=== PATIENT | male | born 1980 | race Caucasian/White ===

== ENCOUNTER 2018-01-30 16:39 | Inpatient (IN) | payer MEDICAID, OTHER, SELFPAY ==
[~2018-01-30] VITALS: Ht 182.9 cm; Wt 74.8 kg
[2018-01-30] MEDS ORDERED: SODIUM CHLORIDE 0.9% 1,000 ML IV ONE ×2 (16:55→18:17)
[2018-01-30] MEDS ORDERED: SODIUM CHLORIDE FLUSH 10ML SYR IVF ONE (17:00)
[2018-01-30 17:21] LABS: MEAN CORPUSCULAR HEMOGLOBIN 30.1 pg (27.5-34.5); MEAN CORPUSCULAR HGB CONC 32.6 g/dL (33.2-36.2); MEAN CORPUSCULAR VOLUME 92.3 fL (81-97); PLATELET COUNT 449 x10^3/uL (130-400); RED BLOOD COUNT 5.19 x10^6/uL (4.38-5.82); RED CELL DISTRIBUTION WIDTH 13.7 % (9.4-14.8)
[2018-01-30 17:22] LABS: PH, VENOUS 6.907 pH (7.320-7.420)
[2018-01-30 17:27] LABS: ALANINE AMINOTRANSFERASE 38 U/L (12-78); ALBUMIN 4.5 g/dL (3.4-5.0); ANION GAP 30 mmol/L (5-15); CALCIUM 9.4 mg/dL (8.5-10.1); CHLORIDE 85 mmol/L (98-107); CREATININE 1.99 mg/dL (0.7-1.3)
[2018-01-30] MEDS ORDERED: SODIUM CHLORIDE 0.9% 1,000ML IVBOLUS ONE ×2 (17:30→18:00)
[2018-01-30 17:40] LABS: ALKALINE PHOSPHATASE 174 U/L (45-117); BILIRUBIN,TOTAL 0.6 mg/dL (0.2-1.0); MD YES; TOTAL PROTEIN 8.5 g/dL (6.4-8.2)
[2018-01-30] MEDS ORDERED: ONDANSETRON ODT 4 MG ONE (17:40)
[2018-01-30 17:42] LABS: BAND#(MANUAL) 1.38 x10^3/uL; BANDS%(MANUAL) 4 % (0-7); EOS#(MANUAL) 0.35 x10^3/uL (0.0-0.4); EOS% (MANUAL) 1 % (1-7); LYMPH#(MANUAL) 2.07 x10^3/uL (1-3.4); LYMPHS% (MANUAL) 6 % (22-44); MONOS#(MANUAL) 2.07 x10^3/uL (0.3-2.7); MONOS% (MANUAL) 6 % (2-9); SEG#(MANUAL) 28.64 x10^3/uL (1.8-6.8); SEGS% (MANUAL) 83 % (42-75)
[2018-01-30 17:43] LABS: <PLATELET ESTIMATE> INCREASED; <PLT MORPHOLOGY> NORMAL PLT MORPH; <RBC MORPHOLOGY> NORMAL
[2018-01-30] MEDS ORDERED: MORPHINE SULFATE 4 MG/ML, 1ML ONE ×2 (17:54→19:00)
[2018-01-30] MEDS ORDERED: CALCIUM CHLORIDE 10%, 10ML SYR ONE (17:59)
[2018-01-30] MEDS ORDERED: ONDANSETRON ODT 4 MG PO ONE (18:00)
[2018-01-30] MEDS ORDERED: MORPHINE SULFATE 4 MG/ML, 1ML IVPush ONE ×2 (18:00→19:30)
[2018-01-30] MEDS ORDERED: REGULAR INSULIN 62.5 UNITS in SODIUM CHLORIDE 0.9% 249.375 ML IV PRN ×2 (18:00→20:29)
[2018-01-30] MEDS ORDERED: CALCIUM CHLORIDE 10%, 10ML SYR IVPush ONE (18:00)
[2018-01-30 18:22] LABS: ACETONE, SERUM Large (80mg/dL) mg/dL (Negative)
[2018-01-30] MEDS ORDERED: SODIUM BICARBONATE 1 MEQ/ML, 50ML VIAL IVPush STA (18:25)
[2018-01-30] MEDS ORDERED: SODIUM BICARB 8.4%, 50ML SYRINGE ONE (18:29)
[2018-01-30] MEDS ORDERED: CALCIUM CHLORIDE 6.8 MEQ in SODIUM CHLORIDE 0.9% 100 ML IV ONE (18:30)
[2018-01-30 18:41] LABS: MICROSCOPIC AUTO
[2018-01-30 18:42] LABS: CULTURE INDICATED? NO
[2018-01-30] MEDS ORDERED: INSU100V8 SQ (19:23)
[2018-01-30 19:38] LABS: ALBUMIN 3.7 g/dL (3.4-5.0); ANION GAP 26 mmol/L (5-15); CHLORIDE 97 mmol/L (98-107)
[2018-01-30 19:42] LABS: CREATININE 1.59 mg/dL (0.7-1.3)
[2018-01-30] MEDS ORDERED: CEFTRIAXONE 1,000 MG in SODIUM CHLORIDE 0.9% 50 ML IVPB ONE (20:00)
[2018-01-30] MEDS ORDERED: CEFTRIAXONE PMX 1GM/50ML 50 ML ONE (20:04)
[2018-01-30] MEDS: SODIUM CHLORIDE 0.9% 1,000 ML IV SCH ×2 (20:29→22:19)
[2018-01-30] MEDS ORDERED: DEXTROSE 4 GM TAB.CHEW PO PRN (20:30)
[2018-01-30] MEDS ORDERED: ONDANSETRON 2MG/ML, 2ML IVPush PRN (20:30)
[2018-01-30] MEDS: HEPARIN 5,000 UNITS/ML, 1ML SQ SCH (20:30)
[2018-01-30] MEDS ORDERED: DEXTROSE 50%, 50ML SYRINGE IVPush PRN (20:30)
[2018-01-30] MEDS: D5%-0.45% NACL 1,000 ML IV SCH (20:30)
[2018-01-30] MEDS ORDERED: GLUCAGON 1 MG IM PRN (20:30)
[2018-01-30] MEDS: SODIUM CHLORIDE FLUSH 10ML SYR IVF SCH (21:00)
[2018-01-30 21:04] LABS: ANION GAP 25 mmol/L (5-15); CALCIUM 8.5 mg/dL (8.5-10.1); CHLORIDE 102 mmol/L (98-107); CREATININE 1.52 mg/dL (0.7-1.3)
[2018-01-30 21:19] VITALS: BP 109/70
[2018-01-30 21:46] VITALS: BP 110/53
[2018-01-30] MEDS ORDERED: HEPARIN 5,000 UNITS/ML, 1ML ONE (21:58)
[2018-01-31] MEDS: D5%-0.45% NACL 1,000 ML IV SCH ×2 (00:31→07:19)
[2018-01-31 01:06] LABS: ANION GAP 14 mmol/L (5-15); CALCIUM 8.4 mg/dL (8.5-10.1); CHLORIDE 110 mmol/L (98-107); CREATININE 1.41 mg/dL (0.7-1.3)
[2018-01-31] MEDS: HEPARIN 5,000 UNITS/ML, 1ML SQ SCH ×3 (04:38→21:28)
[2018-01-31 04:39] VITALS: BP 98/57
[2018-01-31 05:07] LABS: CHLORIDE 112 mmol/L (98-107)
[2018-01-31 05:22] LABS: ANION GAP 12 mmol/L (5-15); CALCIUM 8.1 mg/dL (8.5-10.1); CREATININE 1.26 mg/dL (0.7-1.3)
[2018-01-31 05:27] LABS: ACETONE, SERUM Moderate(40mg/dL) mg/dL (Negative)
[2018-01-31] MEDS: SODIUM CHLORIDE 0.9% 1,000 ML IV SCH ×2 (05:39→11:29)
[2018-01-31 05:56] LABS: MEAN CORPUSCULAR HEMOGLOBIN 30.4 pg (27.5-34.5); MEAN CORPUSCULAR HGB CONC 34.8 g/dL (33.2-36.2); MEAN CORPUSCULAR VOLUME 87.3 fL (81-97); MEAN PLATELET VOLUME 8.8 fL (7.4-10.4); PLATELET COUNT 322 x10^3/uL (130-400); RED BLOOD COUNT 4.42 x10^6/uL (4.38-5.82); RED CELL DISTRIBUTION WIDTH 13.2 % (9.4-14.8)
[2018-01-31 06:25] LABS: BASOPHILS # (AUTO) 0.02 x10^3/uL (0-0.1); BASOPHILS % (AUTO) 0 % (0-1); EOSINOPHILS % (AUTO) 0 % (1-7); LYMPHOCYTES # (AUTO) 2.06 x10^3/uL (1-3.4); LYMPHOCYTES % (AUTO) 11 % (22-44); MD SCAN; MONOCYTES # (AUTO) 1.29 x10^3/uL (0.2-0.8); MONOCYTES % (AUTO) 7 % (2-9); NEUTROPHILS # (AUTO) 16.33 x10^3/uL (1.8-6.8); NEUTROPHILS % (AUTO) 83 % (42-75)
[2018-01-31] MEDS ORDERED: SODIUM PHOSPHATE 20 MMOL in SODIUM CHLORIDE 0.9% 500 ML IV ONE (08:00)
[2018-01-31 08:57] LABS: ANION GAP 10 mmol/L (5-15); CALCIUM 8.1 mg/dL (8.5-10.1); CHLORIDE 112 mmol/L (98-107); CREATININE 1.05 mg/dL (0.7-1.3)
[2018-01-31] MEDS: SODIUM CHLORIDE FLUSH 10ML SYR IVF SCH ×2 (09:00→21:28)
[2018-01-31 13:30] LABS: ANION GAP 11 mmol/L (5-15); CALCIUM 7.7 mg/dL (8.5-10.1); CHLORIDE 111 mmol/L (98-107); CREATININE 0.94 mg/dL (0.7-1.3)
[2018-01-31] MEDS: INSULIN LISPRO 100 UNITS/ML, PEN SQ-INSULIN SCH ×2 (16:00→20:55)
[2018-01-31 19:57] LABS: HEMOGLOBIN A1C 13.7 % (4.2-6.3)
[2018-01-31] MEDS ORDERED: SODIUM CHLORIDE 0.9% 1,000 ML IV SCH (20:29)
[2018-01-31 20:53] VITALS: BP 117/66
[2018-01-31] MEDS: INSULIN GLARGINE 100 UNITS/ML, PEN SQ-INSULIN SCH ×2 (21:00→23:25)
[2018-01-31] MEDS ORDERED: D5%-0.9% NACL+KCL 20MEQ 1,000 ML IV SCH (21:30)
[2018-01-31 21:44] LABS: ANION GAP 13 mmol/L (5-15); CALCIUM 7.5 mg/dL (8.5-10.1); CHLORIDE 111 mmol/L (98-107)
[2018-01-31 21:45] LABS: CREATININE 0.83 mg/dL (0.7-1.3)
[2018-01-31] MEDS ORDERED: POTASSIUM PHOSPHATE 44 MEQ in SODIUM CHLORIDE 0.9% 500 ML IV ONE (22:00)
[2018-02-01 03:30] VITALS: BP 104/67
[2018-02-01 05:18] LABS: BASOPHILS # (AUTO) 0.11 x10^3/uL (0-0.1); BASOPHILS % (AUTO) 1 % (0-1); EOSINOPHILS # (AUTO) 0.01 x10^3/uL (0-0.4); EOSINOPHILS % (AUTO) 0 % (1-7); LYMPHOCYTES # (AUTO) 1.24 x10^3/uL (1-3.4); LYMPHOCYTES % (AUTO) 14 % (22-44); MD NO; MEAN CORPUSCULAR HEMOGLOBIN 30.3 pg (27.5-34.5); MEAN CORPUSCULAR HGB CONC 34.9 g/dL (33.2-36.2); MEAN CORPUSCULAR VOLUME 86.8 fL (81-97); MEAN PLATELET VOLUME 8.5 fL (7.4-10.4); MONOCYTES # (AUTO) 0.74 x10^3/uL (0.2-0.8); MONOCYTES % (AUTO) 8 % (2-9); NEUTROPHILS # (AUTO) 6.91 x10^3/uL (1.8-6.8); NEUTROPHILS % (AUTO) 77 % (42-75); PLATELET COUNT 221 x10^3/uL (130-400); RED BLOOD COUNT 3.72 x10^6/uL (4.38-5.82); RED CELL DISTRIBUTION WIDTH 13.6 % (9.4-14.8)
[2018-02-01 05:29] LABS: ANION GAP 9 mmol/L (5-15); CALCIUM 7.6 mg/dL (8.5-10.1); CHLORIDE 114 mmol/L (98-107)
[2018-02-01 05:31] LABS: CREATININE 0.73 mg/dL (0.7-1.3)
[2018-02-01] MEDS: HEPARIN 5,000 UNITS/ML, 1ML SQ SCH ×3 (06:11→20:26)
[2018-02-01 06:52] VITALS: BP 117/73
[2018-02-01] MEDS: INSULIN LISPRO 100 UNITS/ML, PEN SQ-INSULIN SCH ×4 (07:00→20:31)
[2018-02-01] MEDS ORDERED: SODIUM PHOSPHATE 20 MMOL in SODIUM CHLORIDE 0.9% 500 ML IV ONE (07:30)
[2018-02-01] MEDS ORDERED: POTASSIUM CHLORIDE 20 MEQ TAB.ER.PRT PO ONE (07:30)
[2018-02-01] MEDS: SODIUM CHLORIDE FLUSH 10ML SYR IVF SCH ×2 (08:54→20:32)
[2018-02-01] MEDS: INSULIN GLARGINE 100 UNITS/ML, PEN SQ-INSULIN SCH ×2 (08:54→20:32)
[2018-02-01 12:31] VITALS: BP 100/62
[2018-02-01 20:17] VITALS: BP 108/68
[2018-02-02 01:06] VITALS: BP 127/82
[2018-02-02] MEDS: HEPARIN 5,000 UNITS/ML, 1ML SQ SCH (05:20)
[2018-02-02 06:05] LABS: ANION GAP 10 mmol/L (5-15); CALCIUM 8.1 mg/dL (8.5-10.1); CHLORIDE 108 mmol/L (98-107); CREATININE 0.58 mg/dL (0.7-1.3)
[2018-02-02 06:48] VITALS: BP 110/71
[2018-02-02] MEDS: INSULIN LISPRO 100 UNITS/ML, PEN SQ-INSULIN SCH ×2 (08:06→11:46)
[2018-02-02] MEDS: SODIUM CHLORIDE FLUSH 10ML SYR IVF SCH (08:08)
[2018-02-02] MEDS: INSULIN GLARGINE 100 UNITS/ML, PEN SQ-INSULIN SCH (08:08)
[2018-02-02] MEDS ORDERED: INSU100I11 SQ-INSULIN (11:09)
[2018-02-02] MEDS ORDERED: INSU100I13 SQ-INSULIN (11:09)
[2018-02-02 12:34] VITALS: BP 145/98
[2018-02-02] MEDS ORDERED: POTASSIUM CHLORIDE 20 MEQ PACKET PO ONE (13:00)
== END 2018-02-02 14:44 | disposition home or self-care (01) | DRG 682 ==
LOC: ED 19:24 → EDIP 19:38 → CCU 21:08 → 3NE 01-31 15:32
PROVIDERS: ADMIT Hospitalist; ATTEND Hospitalist
DX: N17.0 Acute kidney failure with tubular necrosis (principal); E10.10 Type 1 diabetes mellitus with ketoacidosis without coma; E86.0 Dehydration; Z91.14 Patient's other noncompliance with medication regimen; E87.5 Hyperkalemia; D72.829 Elevated white blood cell count, unspecified; Z79.84 Long term (current) use of oral hypoglycemic drugs; Z79.899 Other long term (current) drug therapy
CPT/HCPCS: 36415; 71045; 80048; 80053; 81001; 82010; 82040; 82803; 82962; 83036; 83605; 83690; 83735; 83930; 84100; 85025; 87040; 87081; 93005; 96365; 96367; 96375; 96376; 99291; G0378; J0696; J1644; J1815; Q0162; J3480; J7030; J7040; J7050

== ENCOUNTER 2018-09-11 17:33 | Inpatient (IN) | payer MEDICAID ==
[~2018-09-11] VITALS: Ht 182.9 cm; Wt 68.7 kg
[~2018-09-11 17:33] MED LIST: INSU100I11 SQ-INSULIN; INSU100I13 SQ-INSULIN; INSU100V8 SQ
[2018-09-11] MEDS ORDERED: REGULAR INSULIN 62.5 UNITS in SODIUM CHLORIDE 0.9% 249.375 ML IV PRN ×2 (17:37→20:00)
--- NOTE | 2018-09-11 17:41 | NUR ---
PT. ARRIVES FROM HOME BY [facility] WITH C/O IRRETRACTABLE VOMITING SINCE YESTERDAY. PT. STATES HE TOOK 70 UNITS OF HIS LANTUS X 3 TIMES TODAY. UPON ARRIVAL PT. WAS PLACE ON THE CP MONITOR AND A SECOND IV WAS ESTABLISHED. PT.'S NS BOLUS IS INFUSING ORDERED. PT. REMAINS A & O X 4. HIS ETCO2 IS 8. LUNGS ARE CTA. MM ARE DRY. CAP REFILL IS BRISK, LESS THAN 3 SECONDS. PT.'S ABD. IS SOFT AND FLAT WITH BS + X 4 QUADS. PT. REPORTS CONTINUED NAUSEA. SIDERAILS ARE UP X 2 AND RN IS AT THE BEDSIDE. FS= "HIGH". PT.'S VITALS ARE STABLE. HOB IS ELEVATED GREATER THAN 30 DEGREES AND PT. HAS BLANKETS IN PLACE FOR WARMTH. PT. HAS KUSSMAUL RESPIRATIONS AT THIS TIME.
[2018-09-11] MEDS ORDERED: SODIUM CHLORIDE 0.9% 1,000ML IVBOLUS ONE ×2 (18:00→19:00)
[2018-09-11] MEDS ORDERED: PLEASE ENTER HEIGHT AND WEIGHT MC SCH (18:00)
[2018-09-11] MEDS ORDERED: ONDANSETRON 2MG/ML, 2ML IVPush ONE (18:00)
[2018-09-11] MEDS ORDERED: ONDANSETRON 2MG/ML, 2ML ONE (18:29)
--- NOTE | 2018-09-11 18:36 | NUR ---
PT.'S LABS WERE DRAWN AND SENT.
--- NOTE | 2018-09-11 18:39 | NUR ---
DR. ZARATE INSTRUCTED THE RN TO WAIT FOR POTASSIUM RESULTS PRIOR TO STARTING HIS INSULIN GTT.
--- NOTE | 2018-09-11 18:52 | NUR ---
REPORT TO ALINA BATES.
[2018-09-11 18:53] LABS: PH, VENOUS 6.896 pH (7.320-7.420)
[2018-09-11] MEDS ORDERED: SODIUM CHLORIDE 0.9% 1,000 ML IV SCH (19:00)
[2018-09-11 19:02] LABS: ALANINE AMINOTRANSFERASE 28 U/L (12-78); ALBUMIN 3.8 g/dL (3.4-5.0); ANION GAP 23 mmol/L (5-15); CALCIUM 7.8 mg/dL (8.5-10.1); CHLORIDE 102 mmol/L (98-107); CREATININE 1.52 mg/dL (0.7-1.3); MEAN CORPUSCULAR HEMOGLOBIN 30.6 pg (27.5-34.5); MEAN CORPUSCULAR HGB CONC 33.8 g/dL (33.2-36.2); MEAN CORPUSCULAR VOLUME 90.4 fL (81-97); MEAN PLATELET VOLUME 9.2 fL (7.4-10.4); PLATELET COUNT 450 x10^3/uL (130-400); RED BLOOD COUNT 5.01 x10^6/uL (4.38-5.82); RED CELL DISTRIBUTION WIDTH 12.8 % (9.4-14.8)
[2018-09-11 19:04] LABS: ALKALINE PHOSPHATASE 118 U/L (45-117); BILIRUBIN,TOTAL 0.5 mg/dL (0.2-1.0); TOTAL PROTEIN 7.2 g/dL (6.4-8.2)
[2018-09-11] MEDS: SODIUM CHLORIDE 0.9% 1,000 ML IV SCH ×2 (19:05→19:48)
--- NOTE | 2018-09-11 19:05 | NUR ---
REPORT RECEIVED AND CARE ASSUMED. PT STATES SOME RELIEF OF NAUSEA--NO ACTIVE VOMITING. SINUS TACHY ON MONITOR. PT TACHYPNIC AT THIS TIME. CRITICAL LABS RECEIVED. INSULIN DRIP STARTED PER ERP REQUEST JOHN--WILL MONITOR CLOSELY FOR K+ RESULTS. DISCUSSED BICARB DRIP--NO DRIP ORDERED AT THIS TIME. ERP AWARE THAT PT TOOK 3 70U DOSES OF LONG ACTING INSULIN RUBBER SPLICER--STILL REQUESTING DRIP TO RUN AT 0.1U/KG/HR PER DKA PROTOCOL. PT AWARE OF POC. WILL MONITOR CLOSELY.
[2018-09-11 19:33] LABS: ACETONE, SERUM Large (80mg/dL) mg/dL (Negative)
[2018-09-11 19:45] LABS: MD YES
[2018-09-11 19:47] LABS: BAND#(MANUAL) 0.89 x10^3/uL; BANDS%(MANUAL) 3 % (0-7); BASOS#(MANUAL) 0.59 x10^3/uL (0-0.1); BASOS% (MANUAL) 2 % (0-1); LYMPH#(MANUAL) 2.66 x10^3/uL (1-3.4); LYMPHS% (MANUAL) 9 % (22-44); MONOS#(MANUAL) 0.59 x10^3/uL (0.3-2.7); MONOS% (MANUAL) 2 % (2-9); SEG#(MANUAL) 24.86 x10^3/uL (1.8-6.8); SEGS% (MANUAL) 84 % (42-75)
[2018-09-11 19:49] LABS: <PLATELET ESTIMATE> INCREASED; <RBC MORPHOLOGY> NORMAL
[2018-09-11 19:50] LABS: <PLT MORPHOLOGY> NORMAL PLT MORPH
[2018-09-11] MEDS ORDERED: SODIUM BICARB 8.4%, 50ML SYRINGE IVPush STA (19:53)
--- NOTE | 2018-09-11 19:56 | NUR ---
DR HERMOSILLO AT BEDSIDE TO EVAL FOR ADMISSION. ORDER RECEIVED FOR 50 MEQ BICARB IV AND THEN START DRIP ORDERED.
[2018-09-11] MEDS ORDERED: SODIUM BICARBONATE 8.4% 150 MEQ in DEXTROSE 5% 1,000 ML IV SCH (20:00)
[2018-09-11] MEDS ORDERED: ONDANSETRON 2MG/ML, 2ML IVPush PRN (20:00)
[2018-09-11] MEDS ORDERED: SODIUM BICARB 8.4%, 50ML SYRINGE ONE (20:03)
[2018-09-11 20:09] LABS: MICROSCOPIC INDICATED
--- NOTE | 2018-09-11 20:15 | NUR ---
REPEAT FSBS COMPLETE. NO CHANGE TO INSULIN DRIP. REPORT CALLED. BICARB GIVEN--AWAITING DRIP. 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 PT TO BE TRANSFERED TO ICU.
[2018-09-11 20:18] LABS: CULTURE INDICATED? NO
[2018-09-11 21:08] LABS: ANION GAP 20 mmol/L (5-15); CALCIUM 8.1 mg/dL (8.5-10.1); CHLORIDE 108 mmol/L (98-107)
[2018-09-11 21:09] LABS: CREATININE 1.41 mg/dL (0.7-1.3)
[2018-09-11 22:41] VITALS: BP 110/67
[2018-09-12] MEDS: SODIUM CHLORIDE 0.9% 1,000 ML IV SCH ×4 (00:08→05:48)
[2018-09-12 01:06] LABS: ANION GAP 15 mmol/L (5-15); CHLORIDE 115 mmol/L (98-107); CREATININE 1.27 mg/dL (0.7-1.3)
[2018-09-12 04:00] VITALS: BP 115/66
[2018-09-12 04:25] LABS: ANION GAP 8 mmol/L (5-15); BASOPHILS # (AUTO) 0.02 x10^3/uL (0-0.1); BASOPHILS % (AUTO) 0 % (0-1); CALCIUM 7.7 mg/dL (8.5-10.1); CHLORIDE 117 mmol/L (98-107); EOSINOPHILS # (AUTO) 0.05 x10^3/uL (0-0.4); EOSINOPHILS % (AUTO) 0 % (1-7); LYMPHOCYTES # (AUTO) 1.95 x10^3/uL (1-3.4); LYMPHOCYTES % (AUTO) 13 % (22-44); MD NO; MEAN CORPUSCULAR HEMOGLOBIN 30.6 pg (27.5-34.5); MEAN CORPUSCULAR HGB CONC 34.6 g/dL (33.2-36.2); MEAN CORPUSCULAR VOLUME 88.3 fL (81-97); MEAN PLATELET VOLUME 7.6 fL (7.4-10.4); MONOCYTES # (AUTO) 1.11 x10^3/uL (0.2-0.8); MONOCYTES % (AUTO) 7 % (2-9); NEUTROPHILS # (AUTO) 12.13 x10^3/uL (1.8-6.8); NEUTROPHILS % (AUTO) 80 % (42-75); PLATELET COUNT 375 x10^3/uL (130-400); RED BLOOD COUNT 4.55 x10^6/uL (4.38-5.82); RED CELL DISTRIBUTION WIDTH 12.7 % (9.4-14.8)
[2018-09-12 04:28] LABS: CREATININE 1.15 mg/dL (0.7-1.3)
[2018-09-12 04:57] LABS: HEMOGLOBIN A1C 14.1 % (4.2-6.3)
[2018-09-12] MEDS: D5%-0.45NACL+KCL 20MEQ 1,000 ML IV SCH ×2 (06:00→11:51)
[2018-09-12 08:00] LABS: ANION GAP 7 mmol/L (5-15); CALCIUM 7.8 mg/dL (8.5-10.1); CHLORIDE 118 mmol/L (98-107); CREATININE 1.09 mg/dL (0.7-1.3)
[2018-09-12 13:19] LABS: ANION GAP 8 mmol/L (5-15); CALCIUM 7.8 mg/dL (8.5-10.1); CHLORIDE 113 mmol/L (98-107); CREATININE 0.98 mg/dL (0.7-1.3)
[2018-09-12 16:37] LABS: ANION GAP 7 mmol/L (5-15); CALCIUM 7.8 mg/dL (8.5-10.1); CHLORIDE 113 mmol/L (98-107)
[2018-09-12 16:38] LABS: CREATININE 0.89 mg/dL (0.7-1.3)
[2018-09-12 18:16] VITALS: BP 107/67
[2018-09-12] MEDS ORDERED: REGULAR INSULIN 62.5 UNITS in SODIUM CHLORIDE 0.9% 249.375 ML IV PRN (20:00)
[2018-09-12] MEDS: INSULIN GLARGINE 100 UNITS/ML, PEN SQ-INSULIN SCH (20:36)
[2018-09-12] MEDS: INSULIN LISPRO 100 UNITS/ML, PEN SQ-INSULIN SCH (20:36)
[2018-09-13 01:15] VITALS: BP 100/64
[2018-09-13 05:45] LABS: ANION GAP 9 mmol/L (5-15); CHLORIDE 112 mmol/L (98-107); CREATININE 0.64 mg/dL (0.7-1.3)
[2018-09-13 06:59] VITALS: BP 97/61
[2018-09-13] MEDS: INSULIN LISPRO 100 UNITS/ML, PEN SQ-INSULIN SCH ×2 (07:00→12:42)
[2018-09-13] MEDS ORDERED: POTASSIUM CHLORIDE 20 MEQ TAB.ER.PRT PO ONE ×2 (07:00→13:00)
[2018-09-13] MEDS ORDERED: GLUCAGON 1 MG IM PRN (07:30)
[2018-09-13] MEDS ORDERED: DEXTROSE 50%, 50ML SYRINGE IVPush PRN (07:30)
[2018-09-13] MEDS ORDERED: DEXTROSE 4 GM TAB.CHEW PO PRN (07:30)
[2018-09-13] MEDS ORDERED: SODIUM CHLORIDE FLUSH 10ML SYR IVF SCH (09:00)
[2018-09-13] MEDS: INSULIN GLARGINE 100 UNITS/ML, PEN SQ-INSULIN SCH (09:15)
[2018-09-13 14:09] VITALS: BP 117/81
== END 2018-09-13 14:30 | disposition home or self-care (01) | DRG 639 ==
LOC: ED 20:18 → EDIP 20:20 → CCU 20:56 → 4NOR 09-12 18:17
PROVIDERS: ADMIT Internal Medicine; ATTEND Internal Medicine
DX: E10.10 Type 1 diabetes mellitus with ketoacidosis without coma (principal); D72.829 Elevated white blood cell count, unspecified; Z91.19 Patient's noncompliance with other medical treatment and regimen
CPT/HCPCS: 36415; 71045; 80048; 80053; 81001; 82010; 82803; 82947; 82962; 83036; 83690; 83735; 83930; 84100; 84132; 85025; 87040; 87081; 93005; 96361; 96365; 96375; G0378; J1815; J2405; J7070; J3480; J7030; J7050